=== PATIENT | female | born 1960 | race African-American/Black ===

== ENCOUNTER 2024-02-24 15:59 | Inpatient (IN) | payer OTHER ==
[2024-02-24 16:25] VITALS: BMI 29.6
[2024-02-24] MEDS ORDERED: LIDOCAINE 4% PATCH TP ONE (16:31)
[2024-02-24] MEDS: LIDOCAINE 4% PATCH TP ONE (16:52)
[2024-02-24] MEDS ORDERED: levETIRAcetam 500 MG/5 ML INJECTION VIAL IVPB ONE (17:03)
[2024-02-24] MEDS: levETIRAcetam 500 MG/5 ML INJECTION VIAL IVPB ONE ×2 (17:31)
[2024-02-24] MEDS: SODIUM CHLORIDE 0.9% 500 ML INFUS.BAG IV ONE (17:31)
[2024-02-24 17:33] LABS: BASO % 1.3 % (0-2.0); EOS % 3.3 % (0-4.5); HEMATOCRIT 32.1 % (32.4-45.2); HEMOGLOBIN 10.6 GM/dL (10.7-15.3); LYMPH % 15.4 % (8-40); MCH 31.4 pg (25.7-33.7); MCHC 33.1 g/dl (32.0-36.0); MEAN CELL VOLUME 94.7 fl (80-96); MEAN PLT VOLUME 11.1 fl (7.5-11.1); PLATELET COUNT 73 10^3/uL (134-434); RBC 3.39 M/mm3 (3.60-5.2); RDW 16.4 % (11.6-15.6); WHITE BLOOD COUNT 7.5 K/mm3 (4.0-10.0)
[2024-02-24] MEDS: ACETAMINOPHEN 1000 MG/100 ML BAG IVPB ONE (17:42)
[2024-02-24] MEDS ORDERED: ACETAMINOPHEN INJECTION 100 ML IVPB ONE (17:43)
[2024-02-24 17:47] LABS: INR 1.09 (0.83-1.09); PROTHROMBIN TIME (PATIENT) 12.6 SEC (9.7-13.0)
[2024-02-24 17:50] LABS: ACTIVATED PTT 28.9 SECONDS (25.2-36.5); CHLORIDE 101 mmol/L (98-107); POTASSIUM 4.4 mmol/L (3.5-5.1); SODIUM 137 mmol/L (136-145)
[2024-02-24 17:52] LABS: ALBUMIN 3.4 g/dl (3.4-5.0); ANION GAP 9 mmol/L (4-13); BLOOD UREA NITROGEN 69.9 mg/dL (7-18); CALCIUM 7.8 mg/dL (8.5-10.1); CO2 27 mmol/L (21-32); GLUCOSE,RANDOM 132 mg/dL (74-106); MAGNESIUM 2.1 mg/dL (1.8-2.4)
[2024-02-24 17:56] LABS: PHOSPHOROUS 5.9 mg/dL (2.5-4.9); SGOT/AST 36 U/L (15-37); SGPT/ALT 13 U/L (13-61)
[2024-02-24 17:57] LABS: BILIRUBIN,TOTAL 0.3 mg/dL (0.2-1); TOT PROT 9.7 g/dl (6.4-8.2)
[2024-02-24 17:59] LABS: ALK PHOS 182 U/L (45-117)
[2024-02-24 18:12] LABS: CREATININE 11.5 mg/dL (0.55-1.3)
[2024-02-24 19:17] VITALS: PULSE 75
[2024-02-24 21:28] VITALS: BP 103/68; RESP 20; TEMP 97.5
== END 2024-02-24 22:00 | disposition home or self-care (01) | DRG 312 ==
LOC: JER 15:59 → JERBED 18:42 → OBSVTOIN 20:26 → J4W 20:52
PROVIDERS: ADMIT Internal Medicine; ATTEND Internal Medicine
DX: R55 Syncope and collapse (principal); N18.6 End stage renal disease; I69.351 Hemiplegia and hemiparesis following cerebral infarction affecting right dominant side; I12.0 Hypertensive chronic kidney disease with stage 5 chronic kidney disease or end stage renal disease; G40.909 Epilepsy, unspecified, not intractable, without status epilepticus; G89.29 Other chronic pain; D69.6 Thrombocytopenia, unspecified; F41.9 Anxiety disorder, unspecified; M34.9 Systemic sclerosis, unspecified; E11.22 Type 2 diabetes mellitus with diabetic chronic kidney disease; Z99.2 Dependence on renal dialysis
CPT/HCPCS: 0241U-QW; 36415; 71045-TC-FY; 80053; 83735; 84100; 84484; 85025; 85610; 85730; 93005; 93010; 99285-25; G0378; J0131